=== PATIENT | male | born 1960 | race Caucasian/White ===

== ENCOUNTER 2020-08-22 13:58 | Outpatient (REF) | payer BC, SELFPAY ==
[2020-08-22 15:35] LABS: Anion Gap 7.4 mmol/L (3-11); BUN 27 mg/dL (7-18); CO2 26.6 mmol/L (21.0-32.0); Calcium 8.6 mg/dL (8.5-10.1); Chloride 107 mmol/L (98-107); Glucose 100 mg/dL (74-106); Sodium 141 mmol/L (136-145)
[2020-08-22 15:48] LABS: Calculated LDL 98 mg/dL (<100); Cholesterol 181 mg/dL (<200); HDL Cholesterol 68 mg/dL (40-60); Triglyceride 78 mg/dL (<150)
== END 2020-08-22 14:18 ==
LOC: LBN 13:58
PROVIDERS: Visit Provider Nurse Practitioner Family
DX: R42 Dizziness and giddiness (principal)
CPT/HCPCS: 80048; 80061

== ENCOUNTER 2020-09-30 04:27 | Outpatient (CLI) | payer BC, SELFPAY ==
[2020-09-30 10:20] LABS: Abs Immature Grans 0.03 10^3/uL (0.0-0.06); Absolute Basophil Count 0.03 10^3/uL (0.0-0.2); Absolute Eosinophil Count 0.06 10^3/uL (0.0-0.7); Absolute Lymphocyte Count 1.55 10^3/uL (1.2-3.4); Absolute Monocyte Count 0.69 10^3/uL (0.1-0.8); Absolute Neutrophil Count 5.28 10^3/uL (1.2-6.7); Basophils % 0.4; Eosinophils % 0.8; HGB 15.8 g/dL (13.5-17.5); Immature Grans % 0.4; Lymphocytes % 20.3; MCH 31.2 pg (27.0-33.0); MCHC 35.1 % (32.0-36.0); MCV 88.8 fL (80-95); MPV 9.2 fL (8.0-11.0); Neutrophils % 69.1; Nucleated RBC 0 %; Platelet Count 182 10^3/uL (130-400); RBC 5.07 10^6/uL (4.36-5.78); RDW-SD 39.1 fL; WBC 7.64 10^3/uL (4.4-10.8)
[2020-09-30 10:27] LABS: Hemoglobin A1C 5.3 % (<5.7)
[2020-09-30 11:06] LABS: TSH 2.39 uIU/mL (0.36-3.74)
[2020-09-30 17:46] LABS: PSA, Screening 0.8 ng/mL (0.0-3.5)
== END 2020-09-30 04:47 ==
PROVIDERS: Nurse Practitioner Family; PCP Nurse Practitioner Family; Visit Provider Nurse Practitioner Family
DX: R42 Dizziness and giddiness (principal); Z13.1 Encounter for screening for diabetes mellitus; Z13.29 Encounter for screening for other suspected endocrine disorder; Z12.5 Encounter for screening for malignant neoplasm of prostate
CPT/HCPCS: 36415; 84153; 83036; 84443; 85025